=== PATIENT | female | born 1965 | race American Indian/Alaskan Native ===

== ENCOUNTER 2018-11-04 23:45 | Emergency (ER) | payer BC, OTHER ==
[2018-11-05 00:33] LABS: Basophils % (Auto) 0.5 % (0.0-1.8); Eosinophils # (Auto) 0.3 K/mm3 (0.0-0.4); Eosinophils % (Auto) 3.3 % (0.0-4.3); Hematocrit 38.7 % (30.3-42.9); Hemoglobin 13.3 gm/dl (10.1-14.3); Lymphocytes # (Auto) 2.3 K/mm3 (1.2-5.4); Lymphocytes % (Auto) 27.2 % (13.4-35.0); Mean Corpuscular HGB Conc 34 % (30-34); Mean Corpuscular Volume 92 fl (79-97); Monocytes # (Auto) 0.8 K/mm3 (0.0-0.8); Platelet Count 249 K/mm3 (140-440); Red Cell Distribution Width 14.2 % (13.2-15.2)
--- NOTE | 2018-11-05 00:56 | XRay Report ---
PROCEDURE: XR CHEST 1V AP TECHNIQUE: Chest radiograph single view. HISTORY: Chest Pain COMPARISONS: None . FINDINGS: Heart: Normal. Mediastinum/Vessels: Normal. Lungs/Pleural space: Normal. Bony thorax: No acute osseous abnormality. Life support devices: None. IMPRESSION: No acute cardiopulmonary abnormality. This document is electronically signed by Jennie Pedroza MD., November 05 2018 12:54:10 AM ET
[2018-11-05 01:00] LABS: BUN/Creatinine Ratio 22; Blood Urea Nitrogen 20 mg/dL (7-17); Calcium 9.5 mg/dL (8.4-10.2); Hemolysis Index 11
--- NOTE | 2018-11-05 03:07 | Emergency Department Report ---
ED Chest Pain HPI - General Chief Complaint: Chest Pain Stated Complaint: CHEST PAIN,ARM PAIN, HEADACHE Source: patient Mode of arrival: Ambulatory Limitations: No Limitations - History of Present Illness Initial Comments: This is a 53-year-old -[place] female presents with chest pain radiating to left arm for 2 days. Past medical history of hypertension. Reports symptoms for 1-2 weeks. She called her primary care doctor at [facility] earlier this week and he told her to follow-up in the emergency room. Patient states she thought it was gas and continued taken [id number] medication with no improvement of symptoms. Patient states he feels like something is stuck in her chest after eating. 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 Patient admits to nausea and headache. She decided to come in for further evaluation today. She denies palpitations, shortness of breath, wheezing, cough or dizziness.. MD Complaint: chest pain Onset/Timin -: days(s) Onset: after eating Pain Location: substernal Pain Radiation: LUE Severity: moderate Severity scale (0 -10): 8 Quality: aching Consistency: intermittent Improves With: nothing Worsens With: exertion, eating re: nausea. denies: vomting, diaphoresis, dyspnea, sense of impending doom Other Symptoms: denies: cough, fever, syncope, rash, acid taste in mouth, leg swelling, palpitations, burping Treatments Prior to Arrival: other (antiacids) Aspirin use within the Past 7 Days: (0) No - Related Data On Oral Contraceptives: No Home Medications Medication Instructions Recorded Confirmed Last Taken Gabapentin [Neurontin] 300 mg PO TID 04/11/18 04/11/18 Unknown Levothyroxine Sodium [Synthroid] 112 mcg PO DAILY 04/11/18 04/11/18 Unknown Lisinopril/Hydrochlorothiazide 1 tab PO QDAY 04/11/18 04/11/18 Unknown [Zestoretic 20-25 mg] Methocarbamol [Robaxin TAB] 750 mg PO BID 04/11/18 04/11/18 Unknown amLODIPine [Norvasc] 5 mg PO DAILY 04/11/18 04/11/18 Unknown Previous Rx's Medication Instructions Recorded Last Taken Type levoFLOXacin [Levaquin TAB] 500 mg PO QDAY #4 tablet 04/11/18 Unknown Rx Sulfamethoxazole/Trimethoprim 1 each PO BID #6 tablet 11/05/18 Unknown Rx [Bactrim DS TAB] Allergies Allergy/AdvReac Type Severity Reaction Status Date / Time No Known Allergies Allergy Verified 04/10/18 18:57 Heart Score - HEART Score History: Slightly suspicious EKG: Normal Age: 45-65 Risk factors: 1-2 risk factors Troponin: < normal limit HEART Score: 2 - Critical Actions Critical Actions: 0-3 pts:0.9-1.7%risk of adverse cardiac event.Candidate for discharge ED Review of Systems ROS: Stated complaint: CHEST PAIN,ARM PAIN, HEADACHE Other details as noted in HPI Constitutional: denies: chills, fever Respiratory: denies: cough, shortness of breath, wheezing Cardiovascular: chest pain. denies: palpitations Endocrine: no symptoms reported Gastrointestinal: denies: abdominal pain, nausea, diarrhea Genitourinary: denies: urgency, dysuria, discharge Skin: denies: rash, lesions Neurological: headache. denies: weakness, paresthesias Psychiatric: denies: anxiety, depression ED Past Medical Hx - Past Medical History Previous Medical History?: Yes Hx Hypertension: Yes Additional medical history: thyeoid - Surgical History Additional Surgical History: Thyroidectomy - Social History Smoking Status: Never Smoker Substance Use Type: None - Medications Home Medications: Home Medications Medication Instructions Recorded Confirmed Last Taken Type Gabapentin [Neurontin] 300 mg PO TID 04/11/18 04/11/18 Unknown History Levothyroxine Sodium [Synthroid] 112 mcg PO DAILY 04/11/18 04/11/18 Unknown History Lisinopril/Hydrochlorothiazide 1 tab PO QDAY 04/11/18 04/11/18 Unknown History [Zestoretic 20-25 mg] Methocarbamol [Robaxin TAB] 750 mg PO BID 04/11/18 04/11/18 Unknown History amLODIPine [Norvasc] 5 mg PO DAILY 04/11/18 04/11/18 Unknown History levoFLOXacin [Levaquin TAB] 500 mg PO QDAY #4 tablet 04/11/18 Unknown Rx Sulfamethoxazole/Trimethoprim 1 each PO BID #6 tablet 11/05/18 Unknown Rx [Bactrim DS TAB] ED Physical Exam - General Limitations: No Limitations General appearance: alert, in no apparent distress, obese (morbidly obese) - ENT ENT exam: Present: mucous membranes moist - Respiratory Respiratory exam: Present: normal lung sounds bilaterally. Absent: respiratory distress, wheezes, rales, rhonchi, stridor, chest wall tenderness - Cardiovascular Cardiovascular Exam: Present: regular rate, normal rhythm. Absent: systolic murmur, diastolic murmur, rubs, gallop - GI/Abdominal GI/Abdominal exam: Present: soft, normal bowel sounds. Absent: distended, t enderness, guarding, rebound, rigid, organomegaly, mass - Neurological Exam Neurological exam: Present: alert, oriented X3, normal gait - Psychiatric Psychiatric exam: Present: normal affect, normal mood - Skin Skin exam: Present: warm, dry, intact, normal color. Absent: rash ED Course Vital Signs 11/04/18 11/05/18 23:48 05:48 Temperature 97.9 F 98 F Pulse Rate 86 78 Respiratory 18 16 Rate Blood Pressure 155/101 Blood Pressure 148/78 [Left] O2 Sat by Pulse 99 100 Oximetry ED Medical Decision Making - Lab Data Result diagrams: 11/05/18 00:15 11/05/18 00:15 Lab Results 11/05/18 11/05/18 11/05/18 Range/Units 00:15 00:15 02:50 WBC 8.3 (4.5-11.0) K/mm3 RBC 4.20 (3.65-5.03) M/mm3 Hgb 13.3 (10.1-14.3) gm/dl Hct 38.7 (30.3-42.9) % MCV 92 (79-97) fl MCH 32 (28-32) pg MCHC 34 (30-34) % RDW 14.2 (13.2-15.2) % Plt Count 249 (140-440) K/mm3 Lymph % (Auto) 27.2 (13.4-35.0) % [place] % (Auto) 10.0 H (0.0-7.3) % Eos % (Auto) 3.3 (0.0-4.3) % Baso % (Auto) 0.5 (0.0-1.8) % Lymph # 2.3 (1.2-5.4) K/mm3 [place] # 0.8 (0.0-0.8) K/mm3 Eos # 0.3 (0.0-0.4) K/mm3 Baso # 0.0 (0.0-0.1) K/mm3 Seg Neutrophils % 59.0 (40.0-70.0) % Seg Neutrophils # 4.9 (1.8-7.7) K/mm3 Sodium 141 (137-145) mmol/L Potassium 3.5 L (3.6-5.0) mmol/L Chloride 103.5 (98-107) mmol/L Carbon Dioxide 26 (22-30) mmol/L Anion Gap 15 mmol/L BUN 20 H (7-17) mg/dL Creatinine 0.9 (0.7-1.2) mg/dL Estimated GFR > 60 ml/min BUN/Creatinine Ratio 22 % Glucose 94 (65-100) mg/dL Calcium 9.5 (8.4-10.2) mg/dL Troponin T < 0.010 < 0.010 (0.00-0.029) ng/mL Urine Color (Yellow) Urine Turbidity (Clear) Urine pH (5.0-7.0) Ur Specific [place] (1.003-1.030) Urine Protein (Negative) mg/dL Urine Glucose (UA) (Negative) mg/dL Urine Ketones (Negative) mg/dL Urine Blood (Negative) Urine Nitrite (Negative) Urine Bilirubin (Negative) Urine Urobilinogen (<2.0) mg/dL Ur Leukocyte Esterase (Negative) Urine WBC (Auto) (0.0-6.0) /HPF Urine RBC (Auto) (0.0-6.0) /HPF U Epithel Cells (Auto) (0-13.0) /HPF Urine Mucus /HPF 11/05/18 11/05/18 Range/Units 03:00 05:53 WBC (4.5-11.0) K/mm3 RBC (3.65-5.03) M/mm3 Hgb (10.1-14.3) gm/dl Hct (30.3-42.9) % MCV (79-97) fl MCH (28-32) pg MCHC (30-34) % RDW (13.2-15.2) % Plt Count (140-440) K/mm3 Lymph % (Auto) (13.4-35.0) % [place] % (Auto) (0.0-7.3) % Eos % (Auto) (0.0-4.3) % Baso % (Auto) (0.0-1.8) % Lymph # (1.2-5.4) K/mm3 [place] # (0.0-0.8) K/mm3 Eos # (0.0-0.4) K/mm3 Baso # (0.0-0.1) K/mm3 Seg Neutrophils % (40.0-70.0) % Seg Neutrophils # (1.8-7.7) K/mm3 Sodium (137-145) mmol/L Potassium (3.6-5.0) mmol/L Chloride (98-107) mmol/L Carbon Dioxide (22-30) mmol/L Anion Gap mmol/L BUN (7-17) mg/dL Creatinine (0.7-1.2) mg/dL Estimated GFR ml/min BUN/Creatinine Ratio % Glucose (65-100) mg/dL Calcium (8.4-10.2) mg/dL Troponin T < 0.010 (0.00-0.029) ng/mL Urine Color Yellow (Yellow) Urine Turbidity Clear (Clear) Urine pH 5.0 (5.0-7.0) Ur Specific [place] 1.032 H (1.003-1.030) Urine Protein <15 mg/dl (Negative) mg/dL Urine Glucose (UA) Neg (Negative) mg/dL Urine Ketones Neg (Negative) mg/dL Urine Blood Neg (Negative) Urine Nitrite Neg (Negative) Urine Bilirubin Neg (Negative) Urine Urobilinogen < 2.0 (<2.0) mg/dL Ur Leukocyte Esterase Tr (Negative) Urine WBC (Auto) 11.0 H (0.0-6.0) /HPF Urine RBC (Auto) 2.0 (0.0-6.0) /HPF U Epithel Cells (Auto) 1.0 (0-13.0) /HPF Urine Mucus Few /HPF - EKG Data -: No EKG Interpreted by Me (EKG interpreted by the attending) EKG shows normal: sinus rhythm Rate: normal - Radiology Data Radiology results: report reviewed PROCEDURE: XR CHEST 1V AP TECHNIQUE: Chest radiograph single view. HISTORY: Chest Pain COMPARISONS: None . FINDINGS: Heart: Normal. Mediastinum/Vessels: Normal. Lungs/Pleural space: Normal. Bony thorax: No acute osseous abnormality. Life support devices: None. IMPRESSION: No acute cardiopulmonary abnormality. - Medical Decision Making Patient was examined by me. Vitals are normal and patient is in no acute distress. Obtained labs, EKG, and chest pain. EKG interpreted by the attending, normal rhythm no STEMI elevation. Prerenal failure. IV site initi ated patient given normal saline 1L. All other labs unremarkable. Patient informed of results. Patient will follow-up with primary care provider at [facility]. Referral to cardiology for further evaluation. Instructed to get repeat CMP by PCP in 2 weeks. Acute cystitis, start Bactrim DS. Plan discussed with patient to discharge home and treat outpatient. She agrees with ER plan. Patient discharged home in stable condition. Follow up with PCP in 2-3 days. Critical care attestation.: If time is entered above; I have spent that time in minutes in the direct care of this critically ill patient, excluding procedure time. ED Disposition Clinical Impression: Prerenal renal failure Chest pain Qualifiers: Chest pain type: other chest pain Qualified Code(s): R07.89 - Other chest pain UTI (urinary tract infection) Qualifiers: Urinary tract infection type: acute cystitis Hematuria presence: without hematuria Qualified Code(s): N30.00 - Acute cystitis without hematuria Disposition: - TO HOME OR SELFCARE Is pt being admited?: No Does the pt Need Aspirin: No Condition: Stable Instructions: Chest Pain (ED), Urinary Tract Infection in Women (ED) Additional Instructions: Increase fluid intake to 1L to 2L daily. Complete full course of antibiotics as prescribed. Avoid drinking alcohol while taking antibiotics and for 24 hours after completion. Follow up with primary care provider in 2-3 days. Current emergency room if increased chest pain, palpitations, shortness of breath, and lightheadedness. Prescriptions: Sulfamethoxazole/Trimethoprim [Bactrim DS TAB] 1 each PO BID #6 tablet Referrals: PIERCE LINTON MD [Primary Care Provider] - 3-5 Days [facility] [Provider Group] - 3-5 Days [facility] [Provider Group] - 3-5 Days [facility] [Provider Group] - 3-5 Days ROSITA SLOAN MD [Staff Physician] - 3-5 Days Forms: Accompanied Note, Work/School Release Form(ED) Time of Disposition: 06:37
[2018-11-05 03:42] LABS: Bilirubin,Urine NEG (Negative); Blood,Urine NEG (Negative); Color,Urine Yellow (Yellow); Mucus,Urine FEW /HPF; Protein,Urine <15 mg/dL mg/dL (Negative); Urobilinogen,Urine < 2.0 mg/dL (<2.0)
[2018-11-05] MEDS ORDERED: NACL 0.9% 1000 ML 1,000 ML IV ONE (04:14)
[2018-11-05 07:19] VITALS: BP 148/78
== END 2018-11-05 07:15 | disposition home or self-care (01) ==
LOC: ED 23:45
DX: N19 Unspecified kidney failure (principal); N30.00 Acute cystitis without hematuria; I10 Essential (primary) hypertension; E66.01 Morbid (severe) obesity due to excess calories
CPT/HCPCS: 36415; 71045; 80048; 81001; 84484; 85025; 93005; 93010; 99284; J7030

== ENCOUNTER 2018-11-28 08:52 | Emergency (ER) | payer OTHER, BC ==
[2018-11-28 08:57] VITALS: BP 168/102
[2018-11-28] MEDS ORDERED: TORADOL IM ONE (09:15)
[2018-11-28] MEDS ORDERED: DECADRON IM ONE (09:15)
--- NOTE | 2018-11-28 09:21 | Emergency Department Report ---
ED Back Pain/Injury HPI - General Chief Complaint: Back Pain/Injury Stated Complaint: BACK PAIN Time Seen by Provider: 11/28/18 09:07 Source: patient Limitations: No Limitations - History of Present Illness Initial Comments: 52-year-old female presents to the ED with complaint of low back pain. 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 Patient reports she had a strenuous shift 4 days ago which involved lifting and moving lots of patients. Patient states with an impression is she began to feel some lower back pain on the right side. Patient states pain is currently radiating down to her left leg, denies numbness or tingling or weakness. Patient states she has tried Icy Hot, Aleve, however no improvement pain. No previous history of significant back pain or injury. MD Complaint: back pain -: days(s) (4) Similar Symptoms Previously: No Place: work Radiation: right leg Severity: moderate Quality: sharp, aching Consistency: intermittent Improves With: immobilization Worsens With: movement Associated Symptoms: denies other symptoms Treatments Prior to Arrival: NSAIDS - Related Data Home Medications Medication Instructions Recorded Confirmed Last Taken Gabapentin [Neurontin] 300 mg PO TID 04/11/18 04/11/18 Unknown Levothyroxine Sodium [Synthroid] 112 mcg PO DAILY 04/11/18 04/11/18 Unknown Lisinopril/Hydrochlorothiazide 1 tab PO QDAY 04/11/18 04/11/18 Unknown [Zestoretic 20-25 mg] amLODIPine [Norvasc] 5 mg PO DAILY 04/11/18 04/11/18 Unknown methOCARBAMOL [Robaxin TAB] 750 mg PO BID 04/11/18 04/11/18 Unknown Previous Rx's Medication Instructions Recorded Last Taken Type levoFLOXacin [Levaquin TAB] 500 mg PO QDAY #4 tablet 04/11/18 Unknown Rx Sulfamethoxazole/Trimethoprim 1 each PO BID #6 tablet 11/05/18 Unknown Rx [Bactrim DS TAB] Naproxen [Naprosyn] 500 mg PO BID #20 tablet 11/28/18 Unknown Rx methOCARBAMOL [Robaxin TAB] 500 mg PO Q8HR PRN #20 tablet 11/28/18 Unknown Rx predniSONE [Deltasone] 50 mg PO QDAY #5 tab 11/28/18 Unknown Rx Allergies Allergy/AdvReac Type Severity Reaction Status Date / Time No Known Allergies Allergy Verified 04/10/18 18:57 ED Review of Systems ROS: Stated complaint: BACK PAIN Other details as noted in HPI Comment: All other systems reviewed and negative Constitutional: denies: chills, fever Gastrointestinal: denies: abdominal pain Musculoskeletal: back pain Neurological: other. denies: weakness, numbness, paresthesias ED Past Medical Hx - Past Medical History Previous Medical History?: Yes Hx Hypertension: Yes Additional medical history: Thyroid - Surgical History Past Surgical History?: Yes Additional Surgical History: Thyroidectomy - Social History Smoking Status: Never Smoker Substance Use Type: None - Medications Home Medications: Home Medications Medication Instructions Recorded Confirmed Last Taken Type Gabapentin [Neurontin] 300 mg PO TID 04/11/18 04/11/18 Unknown History Levothyroxine Sodium [Synthroid] 112 mcg PO DAILY 04/11/18 04/11/18 Unknown History Lisinopril/Hydrochlorothiazide 1 tab PO QDAY 04/11/18 04/11/18 Unknown History [Zestoretic 20-25 mg] amLODIPine [Norvasc] 5 mg PO DAILY 04/11/18 04/11/18 Unknown History levoFLOXacin [Levaquin TAB] 500 mg PO QDAY #4 tablet 04/11/18 Unknown Rx methOCARBAMOL [Robaxin TAB] 750 mg PO BID 04/11/18 04/11/18 Unknown History Sulfamethoxazole/Trimethoprim 1 each PO BID #6 tablet 11/05/18 Unknown Rx [Bactrim DS TAB] Naproxen [Naprosyn] 500 mg PO BID #20 tablet 11/28/18 Unknown Rx methOCARBAMOL [Robaxin TAB] 500 mg PO Q8HR PRN #20 tablet 11/28/18 Unknown Rx predniSONE [Deltasone] 50 mg PO QDAY #5 tab 11/28/18 Unknown Rx ED Physical Exam - General Limitations: No Limitations General appearance: alert, in no apparent distress, obese - Head Head exam: Present: atraumatic, normocephalic - Eye Eye exam: Present: normal appearance - ENT ENT exam: Present: mucous membranes moist - Neck Neck exam: Present: normal inspection - Respiratory Respiratory exam: Present: normal lung sounds bilaterally. Absent: respiratory distress - Cardiovascular Cardiovascular Exam: Present: regular rate, normal rhythm - GI/Abdominal GI/Abdominal exam: Absent: distended - Extremities Exam Extremities exam: Present: normal inspection - Back Exam Back exam: Present: paraspinal tenderness (in right sciatic notch) - Neurological Exam Neurological exam: Present: alert, oriented X3. 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 ED Disposition Clinical Impression: Sciatica, right side Disposition: TO HOME OR SELFCARE Is pt being admited?: No Condition: Stable Instructions: Sciatica (ED), Acute Low Back Pain (ED) Prescriptions: predniSONE [Deltasone] 50 mg PO QDAY #5 tab Naproxen [Naprosyn] 500 mg PO BID #20 tablet methOCARBAMOL [Robaxin TAB] 500 mg PO Q8HR PRN #20 tablet PRN Reason: Muscle Spasm Referrals: JEANNIE NICK MD [Staff Physician] - 3-5 Days Time of Disposition: 09:23
[2018-11-28] MEDS ORDERED: HYDROGEN PEROXIDE ONE (09:33)
[2018-11-28] MEDS ORDERED: HYDROGEN PEROXIDE TP ONE (09:37)
== END 2018-11-28 09:54 | disposition home or self-care (01) ==
LOC: ED 08:52
DX: M54.41 Lumbago with sciatica, right side (principal); I10 Essential (primary) hypertension
CPT/HCPCS: 96372; 99282; J1100; J1885